=== PATIENT | female | born 1985 ===

== ENCOUNTER 2017-04-13 21:16 | Emergency (ER) | payer SELFPAY ==
[~2017-04-13] VITALS: Ht 165.1 cm; Wt 72.6 kg
--- NOTE | 2017-04-14 00:26 | NUR ---
Alondra emery in ED - 04/14/17 at 0026 by ANAYA Removed IV intact, site oknita, edwar. Gave pt RX and d/c instructions, verbalized understanding.
--- NOTE | 2017-04-14 00:26 | NUR ---
Gave pt RX and d/c instructions, verbalized understanding.
== END 2017-04-14 00:27 | disposition home or self-care (01) ==
LOC: ER 21:16
DX: M94.0 Chondrocostal junction syndrome [Tietze] (principal); J40 Bronchitis, not specified as acute or chronic
CPT/HCPCS: 36415; 71046; 93005; A4663